=== PATIENT | female | born 1995 | race Two or more races ===

== ENCOUNTER 2016-08-13 15:28 | Emergency (ER) | payer MEDICAID, OTHER ==
[2016-08-13 15:47] VITALS: BP 135/79; BMI 48.4
--- NOTE | 2016-08-13 17:07 | DR.GENAD ---
HPI - PCP Primary Care Physician: sandi - HPI Comment HPI Comment: HISTORY BELOW. - Complaint/Symptoms Chief Complaint Doctors Comments: LOWER ABDMINAL PAIN AND VAGINAL PRESSUE TIMES ONE DAY. NOT FEELING MOVEMENT TODAY. NO VAGINAL DISCHARGE OR BLEEDING. PATIENT IA . Chief Complaint:: lower back pain, vaginal pressure. patient states that she is 28 weeks , g3-p3 - Nurses notes reviewed Nurses Notes Review: Yes - Source History Provided: Patient - Mode of Arrival Mode of Arrival: Ambulatory - Timing Onset of Chief Complaint: 08/12/16 Came on: Suddenly - Duration Duration: Constant Duration: Days PMH - PMH Past Medical History: No Past Surgical History: Yes Surgical History: - Family History History of Family Medical Conditions: Yes Family Medical History: Diabetes Mellitus, [place], Hypertension - Social History Does patient currently use any type of tobacco product: No Have you used tobacco products in the last 12 months: No Type of Tobacco Use: None Does any household member use tobacco: No Alcohol Use: None Do you use any recreational Drugs:: No Lives With: Family Lives Where: Home - infectious screening In the last 2 months have you had wt loss of >10#?: NO Have you had fever, night sweats or hemotysis?: No Have you traveled outside the country in the last 6 months?: No Isolation: Standard ROS - Review of Systems Constitutional: No Symptoms Reported Eyes: No Symptoms Reported ENTM: No Symptoms Reported Respiratoy: No Symptoms Reported Cardiovascular: No Symptoms Reported Gastrointestinal/Abdominal: Abdominal Pain Genitourinary: Pain. negative: Bleeding Neurological: No Symptoms Reported Musculoskeletal: No Symptoms Reported Integumentary: No Symptoms Reported Hematologic/Lymphatic: No Symptoms Reported Endocrine: No Symptoms Reported All Other Systems: Reviewed and Negative PE - Vital Signs Vitals: Pulse Rate 103 Respiratory Rate 16 Blood Pressure [Left Arm] 118/67 Blood Pressure 135/79 O2 Sat by Pulse Oximetry 100 - General Limitations: No Limitations General Appearance: Alert - Head Head Exam: Normal Inspection - Eyes Eye exam: Normal Appearance - ENT ENT Exam: Normal External Ear Exam External Ear Exam: Normal External Inspection TM/Canal Exam: Bilateral Normal Nose Exam: Normal Nose Exam Mouth Exam: Normal Inspection Throat Exam: Normal Inspection - Neck Neck Exam: Normal Inspection - Chest Chest Inspection: Symmetric Chest Wall Rise - Respiratory Respiratory Exam: Normal Lung Sounds Bilat Respiratory Exam: Bilateral Clear to Auscultation - Cardiovascular Cardiovascular Exam: Regular Rate, Normal Rhythm, Normal Heart Sounds - Abdominal Exam Abdominal Exam: Normal Bowel Sounds, Soft, Tenderness Abdominal Tenderness: RLQ, LLQ, Suprapubic - Extremities Extremities Exam: Normal Inspection - Back Back Exam: Normal Inspection - Neurologic Neurological Exam: Alert, Oriented X3 - Psychiatric Psychiatric Exam: Anxious - Skin Skin Exam: Normal Color MDM - Differential Diagnosis Differential Diagnosis: UTI, ESTABLISH MOVEMENT Course - Treatment Treatment: SEE ORDERS - Education/Counseling Education/Counseling: Patient, Education Educated On: Diagnosis, Needs for Follow Up ROR - Labs Reviewed Laboratory Results Reviewed?: Yes Laboratory: Specimen Type Clean catch urine 08/13/16 17:00 Urine Color Yellow (YELLOW) 08/13/16 17:00 Urine Appearance Clear (CLEAR) 08/13/16 17:00 Urine pH 6.0 (5.0 - 8.0) 08/13/16 17:00 Ur Specific [place] 1.015 (1.000-1.030) 08/13/16 17:00 Urine Protein Negative (NEGATIVE) 08/13/16 17:00 Urine Glucose (UA) Negative (NEGATIVE) 08/13/16 17:00 Urine Ketones Negative (NEGATIVE) 08/13/16 17:00 Urine Occult Blood Negative (NEGATIVE) 08/13/16 17:00 Urine Nitrite Negative (NEGATIVE) 08/13/16 17:00 Urine Bilirubin Negative (NEGATIVE) 08/13/16 17:00 Urine Urobilinogen Normal (NORMAL) 08/13/16 17:00 Ur Leukocyte Esterase 2+ (NEGATIVE) 08/13/16 17:00 Urine RBC 0-2 /HPF (NEGATIVE) 08/13/16 17:00 Urine WBC 3-4 /HPF (NEGATIVE) 08/13/16 17:00 Ur Squamous Epith Cells Few /HPF (NEGATIVE) 08/13/16 17:00 Amorphous Sediment Trace /HPF (NEGATIVE) 08/13/16 17:00 Urine Bacteria Trace /HPF (NEGATIVE) 08/13/16 17:00 Ur Culture Indicated? No/not indicated 08/13/16 17:00 - XRAY XRAY Interpreted by: Radiologist XRAY Findings: REPORT DISCUSS WITH PATIENT. - Diagnosis Discharge Problem: Abdominal pain during - Discharge Plan Disposition: 01 HOME, SELF-CARE Condition: Stable - Follow ups/Referrals Follow ups/Referrals: JR MCGREGOR [Primary Care Provider] - 08/14/16 - Instructions Instructions: Abdominal Pain During , [id number], Pelvic Rest Additional Instructions: RETURN TO ED IF WORSE.
[2016-08-13 17:21] LABS: BILIRUBIN,URINE NEGATIVE (NEGATIVE); BLOOD/HEMOGLOBIN,URINE NEGATIVE (NEGATIVE); GLUCOSE, URINE NEGATIVE (NEGATIVE); KETONES,URINE NEGATIVE (NEGATIVE); LEUKOCYTE ESTERASE ,URINE 2+ (NEGATIVE); NITRITES,URINE NEGATIVE (NEGATIVE); PROTEIN,URINE NEGATIVE (NEGATIVE); UROBILINOGEN,URINE NORMAL (NORMAL)
[2016-08-13 17:31] LABS: AMORPHOUS SEDIMENT,UR TRACE /HPF (NEGATIVE); APPEARANCE,URINE CLEAR (CLEAR); BACTERIA,URINE TRACE /HPF (NEGATIVE); COLOR,URINE YELLOW (YELLOW); RBC,URINE 0-2 /HPF (NEGATIVE); SQUAMOUS EPITHELIAL CELL,UR FEW /HPF (NEGATIVE)
--- NOTE | 2016-08-13 18:48 | US ---
OB ultrasound greater than 14 weeks Indication: Abdominal pain with vaginal pressure Comparison: None available Technique: Multiple grayscale and color flow Doppler images of the pelvis were obtained with focused evaluation of the fetus. Findings: A viable single intrauterine is identified with heart tones of 139 beats per minute. A fetus in vertex presentation is observed with an anterior and fundal placenta. The there is no ret roplacental or subchronic fluid or hemorrhage identified. Grossly normal amniotic fluid volume Value Estimated Gestational Age BPD 7.40 cm 29 weeks, 5 days HC 25.51 cm 27 weeks, 5 days AC 26.42 cm 30 weeks, 4 days FL 5.23 cm 27 weeks, 6 days IMPRESSION: There is a single living intrauterine gestation with an estimated gestational age of 29 weeks, 0 day s. No placental or retroplacental hemorrhage. Reported By:
== END 2016-08-13 19:15 | disposition home or self-care (01) ==
LOC: ER 15:55
DX: M54.5 Low back pain (principal); R10.2 Pelvic and perineal pain; Z3A.28 28 weeks gestation of pregnancy
CPT/HCPCS: 76815; 81001; 99283; 99284